=== PATIENT | male | born 1995 ===

== ENCOUNTER → 2018-07-19 | Outpatient (CLI) | payer OTHER | LOC: COL.RAD 08:17 | DX: S43.492A Other sprain of left shoulder joint, initial encounter (principal) | CPT/HCPCS: A9585; Q9967 ==

== ENCOUNTER → 2019-04-16 | Outpatient (CLI) | payer OTHER | LOC: COL.RAD 07:36 | DX: R11.2 Nausea with vomiting, unspecified (principal) | CPT/HCPCS: A9541 ==